=== PATIENT | male | born 1995 ===

== ENCOUNTER 2018-02-14 14:10 | Outpatient (CLI) | payer OTHER ==
[~2018-02-14] VITALS: Ht 170.2 cm; Wt 90.7 kg
== END 2018-02-14 14:25 | disposition home or self-care (01) ==
LOC: OFIC 805 14:10
DX: R22.1 Localized swelling, mass and lump, neck (principal); K21.0 Gastro-esophageal reflux disease with esophagitis

== ENCOUNTER 2018-02-15 09:17 | Outpatient (CLI) | payer OTHER | END 2018-02-15 09:20 | disposition home or self-care (01) | LOC: LAB 09:17 | DX: R22.1 Localized swelling, mass and lump, neck (principal) ==

== ENCOUNTER 2018-03-17 07:34 | Outpatient (CLI) | payer OTHER ==
[~2018-03-17] VITALS: Ht 152.4 cm; Wt 90.7 kg
== END 2018-03-17 07:55 | disposition home or self-care (01) ==
LOC: OFIC 805 07:34
DX: H61.23 Impacted cerumen, bilateral (principal); R22.1 Localized swelling, mass and lump, neck; K21.9 Gastro-esophageal reflux disease without esophagitis

== ENCOUNTER 2018-06-19 08:43 | Outpatient (CLI) | payer OTHER ==
[~2018-06-19] VITALS: Ht 152.4 cm; Wt 90.7 kg
== END 2018-06-19 09:00 | disposition home or self-care (01) ==
LOC: OFIC 805 08:43
DX: H61.23 Impacted cerumen, bilateral (principal); K21.9 Gastro-esophageal reflux disease without esophagitis

== ENCOUNTER 2018-11-22 08:56 | Outpatient (CLI) | payer OTHER | END 2018-11-22 09:55 | disposition home or self-care (01) | LOC: LAB 08:56 | DX: R10.9 Unspecified abdominal pain (principal) ==

== ENCOUNTER 2018-11-29 07:23 | Outpatient (CLI) | payer OTHER | END 2018-11-29 07:26 | disposition home or self-care (01) | LOC: SONOGRAMA 07:23 → OFIC 805 02-19 08:00 | DX: R10.13 Epigastric pain (principal) ==

== ENCOUNTER 2019-02-19 13:22 | Outpatient (CLI) | payer OTHER ==
[~2019-02-19] VITALS: Ht 152.4 cm; Wt 90.7 kg
== END 2019-02-19 13:40 | disposition home or self-care (01) ==
LOC: OFIC 805 13:22
DX: H61.23 Impacted cerumen, bilateral (principal); H93.90 Unspecified disorder of ear, unspecified ear

== ENCOUNTER 2019-07-16 09:40 | Outpatient (CLI) | payer OTHER | END 2019-07-16 09:49 | disposition home or self-care (01) | LOC: RAD 09:40 | DX: M54.5 Low back pain (principal) ==